=== PATIENT | female | born 1995 | race Caucasian/White ===

== ENCOUNTER 2016-12-20 20:40 | Emergency (ER) | payer BC ==
[2016-12-20 20:47] VITALS: BP 145/93
== END 2016-12-20 22:04 | disposition left against medical advice (07) ==
LOC: UCEAST 20:40
DX: Z53.21 Procedure and treatment not carried out due to patient leaving prior to being seen by health care provider (principal)

== ENCOUNTER 2018-07-09 08:39 | Emergency (ER) | payer BC ==
[2018-07-09] MEDS ORDERED: Famotidine IV* 10 MG/ML 2 ML (20 mg) IV SLOW PU ONE (08:47)
[2018-07-09] MEDS ORDERED: methylPREDNISolone 125 MG* 2 ML VIAL IV ONE (08:47)
--- NOTE | 2018-07-09 08:52 | ED ---
Allergic Reaction/Systemic - HPI Summary HPI Summary: Pt is a 22 y/o F presenting to the ED with a chief complaint of an allergic reaction. The pt had a muffin around 0805 which contained peanut butter that she was unaware of. She is allergic to peanuts, and last had a reaction when she was about [age] year old. To try and alleviate the sx, she used her EpiPen and took two Benadryl at approximately 0830. She currently feels heat in her ears, as well as pruritic mouth and hands. She denies trouble swallowing. - History of Current Complaint Time Seen by Provider: 07/09/18 08:43 Hx Obtained From: Patient Hx Last Menstrual Period: one month ago Onset/Duration: Sudden Onset, Started minutes ago, Still Present Timing: Constant, Lasting Minutes Severity Initially: Moderate Character: Pruritus Aggravating Factor(s): Nothing Alleviating Factor(s): Antihistamines, Epinephrine Associated Signs And Symptoms: Positive: Other: - heat in ears, pruritis in mouth/hands. Negative: Throat Tightening - Allergies/Home Medications Allergies/Adverse Reactions: Allergies Allergy/AdvReac Type Severity Reaction Status Date / Time MS Peanut-containing Drug Allergy Anaphylatic Verified 07/09/18 09:13 Products Shock [Peanut-containing Drug Products] PMH/Surg Hx/FS Hx/Imm Hx Previously Healthy: Yes Cardiovascular History: Denies: Hx Hypertension Respiratory History: Reports: Hx Asthma - Family History Known Family History: Negative: Blood Disorder - Social History Occupation: Student Alcohol Use: None Hx Substance Use: No Substance Use Type: Reports: None Hx Tobacco Use: No Smoking Status (MU): Never Smoked Tobacco Review of Systems Positive: Other - heat in her ears Positive: Other - pruritis mouth Musculoskeletal: Other - pruritic hands All Other Systems Reviewed And Are Negative: Yes Physical Exam - Summary Physical Exam Summary: Appearance: The patient is flushed, well-nourished, and in no acute distress and in no acute pain. Skin: The skin is warm, she is mildly diaphoretic, and skin color reflects adequate perfusion. HEENT: The head is normocephalic and atraumatic. The pupils are equal and reactive. The conjunctivae are clear and without drainage. Nares are patent and without drainage. Mouth reveals moist mucous membranes and the throat is without erythema and exudate. The external ears are intact. The ear canals are patent and without drainage. The tympanic membranes are intact. Posterior pharynx is clear. Neck: The neck is supple with full range of motion and non-tender. There are no carotid bruits. There is no neck vein distension. Respiratory: Chest is non-tender. Lungs are clear to auscultation and breath sounds are symmetrical and equal. Cardiovascular: Heart is tachycardic with regular rhythm. There is no murmur or rub auscultated. There is no peripheral edema and pulses are symmetrical and equal. Abdomen: The abdomen is soft and non-tender. There are normal bowel sounds heard in all four quadrants and there is no organomegaly palpated. Musculoskeletal: There is no back tenderness noted. Extremities are non-tender with full range of motion. There is good capillary refill. There is no peripheral edema or calf tenderness elicited. Neurological: Patient is alert and oriented to person, place and time. The patient has symmetrical motor strength in all four extremities. Cranial nerves are grossly intact. Deep tendon reflexes are symmetrical and equal in all four extremities. Psychiatric: The patient has an appropriate affect and does not exhibit any anxiety or depression. Triage Information Reviewed: Yes Vital Signs Reviewed: Yes Re-Evaluation - Re-Evaluation 1st re-eval Re-Evaluation Time: 10:36 Change: Unchanged Comment: The pt has begun vomiting and will be given Zofran to alleviate sx. Allergic Reaction Course/Dx - Course Course Of Treatment: Ms. Zhang presented after accidentally ingesting peanuts which she isn't known to be allergic to from when she was a baby. She is apparently not encountered peanuts for a long time. She began to feel itchy in her throat and neck and used her EpiPen as well as 2 by mouth Benadryl's. She comes in complaining mostly of the itchiness and feeling hot. She was nontoxic in appearance. A little bit diaphoretic and erythematous around her neck. Her posterior pharynx is clear as were her lungs. She was given Pepcid IV as well as Solu-Medrol and did well here. At discharge she began to complain of some stomach cramping and then vomited. She was given Zofran and observed for a little bit longer and felt improved again. - Diagnoses Provider Diagnoses: Allergic reaction Discharge - Sign-Out/Discharge Documenting (check all that apply): Patient Departure Patient Received Moderate/Deep Sedation with Procedure: No - Discharge Plan Condition: Stable Disposition: HOME Referrals: Cherrie Dorantes DO [Primary Care Provider] - Additional Instructions: Please follow up with your primary care provider within the next 2-3 days. Return to the ED with any new or worsening symptoms. - Billing Disposition and Condition Condition: STABLE Disposition: Home - Attestation Statements Document Initiated by Scribe: Yes Documenting Scribe: Philly Maradiaga Provider For Whom Karyna is Documenting (Include Credential): Dann Viera MD. Scribe Attestation: Philly Mitchell, scribed for Dann Viera MD. on 07/09/18 at 1236. Scribe Documentation Reviewed: Yes Provider Attestation: The documentation as recorded by the Philly morelos accurately reflects the service I personally performed and the decisions made by , Dann Viera MD. Status of Scribe Document: Viewed
[2018-07-09] MEDS ORDERED: Ondansetron INJ* 2 MG/ML VIAL IV ONE (10:36)
[2018-07-09 12:35] VITALS: BP 128/73
== END 2018-07-09 12:34 | disposition home or self-care (01) ==
LOC: ED 08:39
DX: T78.40XA Allergy, unspecified, initial encounter (principal); L29.9 Pruritus, unspecified; X58.XXXA Exposure to other specified factors, initial encounter
CPT/HCPCS: 96374; 96375; 99283; J2405; J2930